=== PATIENT | female | born 1960 | race Caucasian/White ===

== ENCOUNTER → 2025-04-24 08:45 | Outpatient (REF) | payer MEDICARE, OTHER, SELFPAY | LOC: RAD 08:45 | PROVIDERS: ATTENDING PHYSICIAN Nurse Practitioner Family; FAMILY PHYSICIAN Internal Medicine | DX: E83.52 Hypercalcemia (principal) | CPT/HCPCS: 78071; A9500 ==

== ENCOUNTER 2025-07-28 06:25 | Day surgery (SDC) | payer MEDICARE, OTHER, SELFPAY ==
[2025-07-14 13:53] VITALS: BMI 35.1
[2025-07-28] VITALS (10 sets, daily range): BP systolic 117–146; BP diastolic 65–79; BMI 35.1
[2025-07-28] MEDS: NEURONTIN 300 MG PO (11:27)
[2025-07-28] MEDS: TYLENOL 1000 MG PO (11:27)
[2025-07-28] MEDS: HEPARIN 5000 UNITS SC (11:35)
[2025-07-28] MEDS: NORMOSOL-R/PLASMALYTE-A 1000 IV (11:38)
[2025-07-28 12:53] LABS: Turbo PTH 2325 pg/ml (14.5-75.2)
[2025-07-28 13:32] LABS: Turbo PTH 28.4 pg/ml (14.5-75.2)
--- NOTE | 2025-07-28 13:45 | OR.RPT ---
Operative Report
Operative Report
Date of Operation: July 28, 2025
Preoperative Diagnosis: Parathyroid hyperparathyroidism - E210
Postoperative Diagnosis: Same
Surgeon: Todd Reid M.D.
Operation: Minimally Invasive Left Superior Parathyroidectomy - 18851
Anesthesia: GET
Estimated Blood Loss: 1 cc
Drains: None
Specimen: Left Superior neck nodule, rule out parathyroid adenoma
Complications: None
Procedure:
The patient was taken to the operating room and placed in the usual supine position. After adequate general endotracheal anesthesia was established, the patient's neck was extended, prepped, and draped in the typical sterile fashion. A 4 cm
transcervical incision was made two fingerbreadths above the sternal notch. The skin incision was made with the #15 blade, and this was taken through the skin into the subcutaneous tissue. The underlying platysma muscle was divided, and subplatysmal
flaps were created superiorly to the thyroid cartilage and inferiorly to the sternal notch. Strap muscles were identified and at the midline.
Attention was turned to the left side of the neck. The left thyroid lobe was mobilized medially. During this process, the left recurrent laryngeal nerve was identified and preserved throughout the surgery. The left upper neck nodule was identified
and noted to be enlarged, excised, and sent to the pathology department, which showed a hypercellular parathyroid gland. The normal-appearing left lower parathyroid gland was identified and preserved. The intraoperative PTH levels normalized.
After obtaining adequate hemostasis, the strap muscles were reapproximated with #3-0 Vicryl in a running fashion. The platysma muscle was reapproximated with #3-0 Vicryl in an interrupted fashion, and the skin was approximated with #4-0 Monocryl in
a running subcuticular fashion. The Steri-Strips and sterile dressings were placed. The patient tolerated the procedure well. The final instrument, needle, and sponge counts were correct. The patient was extubated and transferred to the PACU.
[2025-07-28] MEDS: DILAUDID 0.25 MG IV ×2 (14:25→14:43)
== END 2025-07-28 16:02 | disposition home or self-care (01) ==
LOC: SDS 06:25
PROVIDERS: ATTENDING PHYSICIAN Surgery; FAMILY PHYSICIAN Internal Medicine
DX: E21.3 Hyperparathyroidism, unspecified (principal)
CPT/HCPCS: 60500; 83970; 88305; 88331